=== PATIENT | female | born 1940 | race Caucasian/White ===

== ENCOUNTER → 2023-12-15 08:38 | Outpatient (REF) | payer MEDICARE, OTHER, SELFPAY ==
[2023-12-15 10:12] LABS: HDL Cholesterol 68 mg/dl; LDL Cholesterol, Calculated 144 mg/dl; Total Cholesterol 231 mg/dl (50-199); Triglyceride 97 mg/dl (10-149); Very Low Density Lipoprotein 19 mg/dl (0-30)
[2023-12-15 10:34] LABS: TSH Reflex To Free T4 3.95 uIU/ml (0.47-4.68)
[2023-12-15 10:53] LABS: Vitamin B12 782 pg/ml (239-931)
[2023-12-17 10:49] LABS: Syphilis/T. pallidum Ab Reflex Negative (Negative)
== END ==
LOC: REG 08:38
PROVIDERS: ATTENDING PHYSICIAN Nurse Practitioner Family; FAMILY PHYSICIAN Family Medicine
DX: R41.89 Other symptoms and signs involving cognitive functions and awareness (principal); E53.8 Deficiency of other specified B group vitamins; E78.2 Mixed hyperlipidemia
CPT/HCPCS: 36415; 80061; 82607; 84443; 86780

== ENCOUNTER → 2024-09-19 08:42 | Outpatient (REF) | payer MEDICARE, OTHER, SELFPAY ==
[2024-09-19 10:14] LABS: Hematocrit 40.0 % (37.0-47.0); Hemoglobin 13.3 g/dL (12.0-16.0); Mean Corp Hgb Conc. 33.3 g/dL (33.0-37.0); Mean Corpuscular Volume 91.3 fL (81.0-99.0); Nucleated Red Blood Cells % 0 %; Platelet Count 181 10^3/uL (130-400); Red Cell Dist. Width 13.4 % (11.5-14.5)
[2024-09-19 12:56] LABS: ALT (SGPT) 27 U/L (0-35); AST (SGOT) 26 U/L (14-36); Albumin 4.5 g/dl (3.5-5.0); Alkaline Phosphatase 85 U/L (38-126); Blood Urea Nitrogen 10 mg/dl (7-17); Calcium 9.5 mg/dl (8.4-10.2); Carbon Dioxide 29 mmol/L (22-30); Chloride 108 mmol/L (98-107); Glucose 89 mg/dl (70-99); HDL Cholesterol 58 mg/dl; LDL Cholesterol, Calculated 62 mg/dl; Potassium 4.2 mmol/L (3.5-5.1); Sodium 143 mmol/L (135-145); Total Protein 6.8 g/dl (6.3-8.2); Very Low Density Lipoprotein 19 mg/dl (0-30); eGFR > 60.00
[2024-09-19 14:14] LABS: Vitamin B12 622 pg/ml (239-931)
== END ==
LOC: REG 08:42
PROVIDERS: ATTENDING PHYSICIAN Family Medicine
DX: R41.89 Other symptoms and signs involving cognitive functions and awareness (principal); E53.8 Deficiency of other specified B group vitamins; E78.2 Mixed hyperlipidemia; K21.9 Gastro-esophageal reflux disease without esophagitis
CPT/HCPCS: 36415; 80053; 80061; 82607; 85025